=== PATIENT | male | born 1990 | race American Indian/Alaskan Native ===

== ENCOUNTER 2017-09-12 21:50 | Emergency (ER) | payer OTHER ==
[2017-09-12 22:28] VITALS: RESP 18; TEMP 98.4; O2SAT 98; BMI 22.2
--- NOTE | 2017-09-12 22:52 | ED PDOC ---
Arrival/HPI - General Chief Complaint: Syncope Time Seen by Provider: 09/12/17 22:45 Historian: Patient - History of Present Illness Narrative History of Present Illness (Text): 09/12/17 22:50 26 year old male, with no significant past medical history, presents to the emergency department for evaluation following syncopal episode that occurred yesterday. Patient states he was riding the bus after visiting his friend when he apparently passed out when sitting. Patient states he had been feeling tired and he woke up with people on the bus looking over him. Patient apparently slumped to the ground. He states he felt fine when he woke up and was not sure if maybe he fell asleep and just had fallen. Patient states that he felt fine today, but was advised by his mother to come in and be evaluated. Patient denies any fever, chills, visual disturbance, chest pain, shortness of breath, nausea, vomiting, diarrhea, urinary symptoms, back pain, neck pain, headache, dizziness, or any other complaints. PMD: None Time/Duration: 24 hours Symptom Onset: Sudden Symptom Course: Resolved Activities at Onset: Light Context: Sitting Past Medical History - Provider Review Nursing Documentation Reviewed: Yes - Psychiatric Hx Substance Use: No - Anesthesia Hx Anesthesia: No Family/Social History - Physician Review Nursing Documentation Reviewed: Yes Family/Social History: No Known Family HX Smoking Status: Never Smoked Hx Alcohol Use: Yes Frequency of alcohol use: Socially Hx Substance Use: No Allergies/Home Meds Allergies/Adverse Reactions: Allergies No Known Allergies Allergy (Verified 09/12/17 22:41) Home Medications: Home Meds Medication Instructions Recorded Confirmed No Known Home Med 09/12/17 09/12/17 Review of Systems - Physician Review All systems were reviewed & negative as marked: Yes - Review of Systems Constitutional: absent: Fevers, Other (Chills) Eyes: absent: Vision Changes Respiratory: absent: SOB Cardiovascular: Syncope. absent: Chest Pain Gastrointestinal: absent: Diarrhea, Nausea, Vomiting Genitourinary Male: absent: Dysuria, Frequency, Hematuria Musculoskeletal: absent: Back Pain, Neck Pain Neurological: absent: Headache, Dizziness Physical Exam Vital Signs Reviewed: Yes Vital Signs Temp Pulse Resp BP Pulse Ox 09/12/17 22:27 98.4 F 73 18 132/79 98 Temperature: Afebrile Blood Pressure: Normal Pulse: Regular Respiratory Rate: Normal Appearance: Positive for: Well-Appearing, Non-Toxic, Comfortable Pain Distress: None Mental Status: Positive for: Alert and Oriented X 3 - Systems Exam Head: Present: Atraumatic, Normocephalic Pupils: Present: PERRL Extroacular Muscles: Present: EOMI Conjunctiva: Present: Normal Mouth: Present: Moist Mucous Membranes Neck: Present: Normal Range of Motion Respiratory/Chest: Present: Clear to Auscultation, Good Air Exchange. No: Respiratory Distress, Accessory Muscle Use Cardiovascular: Present: Regular Rate and Rhythm, Normal S1, S2. No: Murmurs Abdomen: No: Tenderness, Distention, Peritoneal Signs Back: Present: Normal Inspection Upper Extremity: Present: Normal Inspection. No: Cyanosis, Edema Lower Extremity: Present: Normal Inspection. No: Edema Neurological: Present: GCS=15, CN II-XII Intact, Speech Normal Skin: Present: Warm, Dry, Normal Color. No: Rashes Psychiatric: Present: Alert, Oriented x 3, Normal Insight, Normal Concentration Medical Decision Making ED Course and Treatment: 09/12/17 22:51 Impression: 26 year old male presents for evaluation following syncopal episode yesterday when sitting in the bus. Plan: -- CT Head w/o contrast -- EKG -- Labs -- Chest X-ray -- Reassess and disposition Progress Notes: 09/13/17 00:25 CXR Impression: As read by me, no acute process. EKG shows NSR at 62 BPM with early repolarization. No acute changes. Interpreted by me. EXAM: CT Head Without Intravenous Contrast Dictated and Authenticated by: Austin Mazariegos MD 09/13/2017 12:47 AM IMPRESSION: 1. No acute intracranial abnormality. 2. Paranasal sinus disease is noted above 09/13/17 01:04 Leaving Against Medical Advice (AMA): The patient is choosing to leave against medical advice. I have personally explained to the patient that choosing to do so may result in permanent bodily harm or . I have discussed at great length that without further evaluation and monitoring there may be unforeseen circumstances and/or deterioration causing permanent bodily harm or as a result of their choice. The patient is alert, oriented, and shows the mental capacity to make clear decisions regarding the patients health care at this time. The patient continues to wish to leave against medical advice. In light of the patients decision to leave against medical advice, follow-up has been arranged and the patient is aware of the importance to following up as instructed. The patient has been advised that they should return to the emergency room immediately if they change their mind at any time, or if their condition begins to change or worsen in any way. - Lab Interpretations Lab Results: 09/12/17 23:13 09/12/17 23:13 Lab Results 09/12/17 23:13: WBC 5.8, RBC 4.85, Hgb 15.2, Hct 43.5, MCV 89.7, MCH 31.3, MCHC 34.9, RDW 12.4, Plt Count 277, MPV 10.1 09/12/17 23:13: Sodium 144, Potassium 4.0, Chloride 103, Carbon Dioxide 30, Anion Gap 16, BUN 15, Creatinine 1.1, Est GFR ( Amer) > 60, Est GFR (Non- Af Amer) > 60, Random Glucose 91, Calcium 9.5, Total Bilirubin 0.3, AST 34, ALT 40, Alkaline Phosphatase 76, Lactate Dehydrogenase 494, Total Creatine Kinase 302 H, CK-MB (CK-2) 1.8, CK-MB (CK-2) % Cancelled, Troponin I < 0.01, Total Protein 7.4, Albumin 4.5, Globulin 2.9, Albumin/Globulin Ratio 1.5 09/12/17 23:13: PT 11.9, INR 1.04, APTT 29.0 I have reviewed the lab results: Yes - RAD Interpretation Radiology Orders: 09/12/17 22:49 HEAD W/O CONTRAST [CT] Stat 09/12/17 22:50 CHEST PORTABLE [RAD] Stat - EKG Interpretation Interpreted by ED Physician: Yes Type: 12 lead EKG - Scribe Statement The provider has reviewed the documentation as recorded by the Michelle Camacho Provider Scribe Attestation: All medical record entries made by the Michelle were at my direction and personally dictated by me. I have reviewed the chart and agree that the record accurately reflects my personal performance of the history, physical exam, medical decision making, and the department course for this patient. I have also personally directed, reviewed, and agree with the discharge instructions and disposition. Disposition/Present on Arrival - Present on Arrival Any Indicators Present on Arrival: No History of DVT/PE: No History of Uncontrolled Diabetes: No Urinary Catheter: No History of Decub. Ulcer: No History Surgical Site Infection Following: None - Disposition Have Diagnosis and Disposition been Completed?: Yes Diagnosis: Syncope Disposition: AGAINST MEDICAL ADVICE Disposition Time: 01:08 Condition: STABLE Discharge Instructions (ExitCare): Syncope (ED) Referrals: PCP,NO [Primary Care Provider] - Follow up with primary Forms: [facility] ([place])
[2017-09-12 23:25] LABS: HEMOGLOBIN 15.2 g/dL (14.0-18.0); MEAN CELL VOLUME 89.7 fl (80.0-105.0); MEAN CORPUSCULAR HEMOGLOBIN 31.3 pg (25.0-35.0); MEAN CORPUSCULAR HGB CONC 34.9 g/dl (31.0-37.0); MEAN PLATELET VOLUME 10.1 fl (7.0-11.0); RBC 4.85 10^6/uL (3.5-6.1); RED CELL DISTRIBUTION WIDTH 12.4 % (11.5-14.5); WHITE BLOOD COUNT 5.8 10^3/ul (4.5-11.0)
[2017-09-12 23:27] LABS: ALB/GLOB RATIO 1.5 (1.1-1.8); ALBUMIN 4.5 g/dL (3.0-4.8); ALT/SGPT 40 U/L (7-56); AST/SGOT 34 U/L (17-59); BLOOD UREA NITROGEN 15 mg/dL (7-21); CALCIUM 9.5 mg/dL (8.4-10.5); GFR AFRICAN-AMERICAN > 60; GFR NON-AFRICAN AMERICAN > 60
[2017-09-12 23:38] LABS: TROPONIN I < 0.01 ng/mL
[2017-09-12 23:42] LABS: INR 1.04 (0.93-1.08); PROTHROMBIN TIME 11.9 SECONDS (9.4-12.5)
[2017-09-12 23:58] LABS: CK-MB 1.8 ng/mL (0.0-3.6)
--- NOTE | 2017-09-13 00:47 | CT ---
EXAM: CT Head Without Intravenous Contrast EXAM DATE/TIME: 09/12/2017 10:49 PM CLINICAL HISTORY: The patient age is 26 years old and is male; Signs and symptoms; Syncope and collapse Facility exam id and description: Ct heads head w/o contrast TECHNIQUE: Axial computed tomography images of the head/brain without intravenous contrast. All CT scans at this facility use one or more dose reduction techniques, viz.: automated exposure control; ma/kV adjustment per patient size (including targeted exams where dose is matched to indication; i.e. head); or iterative reconstruction technique. Coronal and sagittal reformatted images were created and reviewed. COMPARISON: No relevant prior studies available. FINDINGS: Brain: The white-garza differentiation is preserved demonstrating no acute territorial type infarct. No acute intracranial hemorrhage is seen. No significant white matter disease visualized. Midline shift: There is no midline shift. Ventricles: No ventriculomegaly. Bones/joints: The calvarium demonstrates no evidence for a depressed fracture. Soft tissues: No acute abnormality. Sinuses: There is mucosal thickening of the left sphenoid sinus. A small mucous retention cyst or polyp is visualized within the left posterior ethmoid air cell. Mastoid air cells: No mastoid effusion. IMPRESSION: 1. No acute intracranial abnormality. 2. Paranasal sinus disease is noted above.
[2017-09-13 01:27] VITALS: BP 152/62; PULSE 67
--- NOTE | 2017-09-13 09:27 | RAD ---
HISTORY: medical clearance COMPARISON: No prior. FINDINGS: LUNGS: No active pulmonary disease. PLEURA: No significant pleural effusion identified, no pneumothorax apparent. CARDIOVASCULAR: Normal. OSSEOUS STRUCTURES: No significant abnormalities. VISUALIZED UPPER ABDOMEN: Normal. OTHER FINDINGS: None. IMPRESSION: No active disease.
--- NOTE | 2017-09-13 16:52 | CARD ---
APPROVED REPORT EKG Measurement Heart [id number] <Conclusion> Sinus rhythm with marked sinus arrhythmia Early repolarization Otherwise normal ECG
== END 2017-09-13 01:15 | disposition left against medical advice (07) ==
LOC: ED 21:50
DX: R55 Syncope and collapse (principal)